=== PATIENT | female | born 2000 | race Caucasian/White ===

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

== ENCOUNTER 2021-01-16 17:50 | Emergency (ER) | payer BC, OTHER ==
[~2021-01-16] VITALS: Ht 162.6 cm; Wt 63.6 kg
[2021-01-16 18:41] VITALS: BP 133/75
--- NOTE | 2021-01-16 20:26 | NUR ---
PLEASE CALL [phone] WITH COVID RESULTS
--- NOTE | 2021-01-16 20:32 | NUR ---
CALLED PT WITH NEGATIVE COVOID RESULTS
== END 2021-01-16 20:16 | disposition home or self-care (01) ==
LOC: ER 17:51
DX: M79.10 Myalgia, unspecified site (principal); R50.9 Fever, unspecified; R06.02 Shortness of breath; Z20.822 Contact with and (suspected) exposure to COVID-19
CPT/HCPCS: 87635; 99283; C9803

== ENCOUNTER 2021-10-22 23:35 | Emergency (ER) | payer BC ==
[~2021-10-22] VITALS: Ht 162.6 cm; Wt 65.9 kg
[2021-10-23 00:08] VITALS: BP 142/91
== END 2021-10-23 00:54 | disposition home or self-care (01) ==
LOC: ER 23:35
DX: S09.90XA Unspecified injury of head, initial encounter (principal); R51.9 Headache, unspecified; V87.7XXA Person injured in collision between other specified motor vehicles (traffic), initial encounter; Y93.89 Activity, other specified; Y92.89 Other specified places as the place of occurrence of the external cause; Y99.8 Other external cause status
CPT/HCPCS: 99282

== ENCOUNTER 2022-08-04 20:09 | Emergency (ER) | payer BC ==
[~2022-08-04] VITALS: Ht 162.6 cm; Wt 57.4 kg
[2022-08-04 21:38] LABS: CLARITY,URINE CLEAR (Clear); COLOR,URINE YELLOW (Yellow); GLUCOSE, URINE NEGATIVE (Neg); KETONES,URINE NEGATIVE (Neg); LEUKOCYTE ESTERASE ,URINE SMALL (Neg); NITRITES, URINE NEGATIVE (Neg); OCCULT BLOOD,URINE NEGATIVE (Neg); PH,URINE 6.5 (4.8-8.0); PROTEIN,URINE NEGATIVE (Neg)
[2022-08-04 21:39] LABS: URINE HCG POSITIVE (NEG)
[2022-08-04 21:43] LABS: UA COLLECTION TYPE CLN CATCH MIDSTREAM
[2022-08-04 21:56] LABS: BACTERIA,URINE FEW /HPF (Neg); RBC,URINE 0-2 /HPF (0-2); SQUAMOUS EPITHELIAL CELL,UR FEW /LPF (FEW)
[2022-08-04 23:04] LABS: BASOPHILS # (AUTO) 0.1 X10'3 (0-0.2); HEMOGLOBIN 14.5 g/dl (12.0-16.0)
[2022-08-04 23:05] LABS: BASOPHILS % (AUTO) 0.7 % (0-1); EOSINOPHILS # (AUTO) 0.1 X10'3 (0-0.9); HEMATOCRIT 42.9 % (35.0-45.0); LYMPHOCYTES # (AUTO) 2.9 X10'3 (1.1-4.8); LYMPHOCYTES % (AUTO) 23.5 % (21-51); MEAN CORPUSCULAR HEMOGLOBIN 27.8 PG (27.0-31.0); MEAN CORPUSCULAR HGB CONC 33.9 g/dL (33.0-36.5); MEAN CORPUSCULAR VOLUME 82.2 FL (78-98); MEAN PLATELET VOLUME 7.9 FL (7.4-10.4); MONOCYTES # (AUTO) 0.9 X10'3 (0-0.9); MONOCYTES % (AUTO) 6.9 % (2-12); NEUTROPHILS # (AUTO) 8.5 X10'3 (1.8-7.7); NEUTROPHILS % (AUTO) 67.9 % (42-75); PLATELET COUNT 262 X10'3 (140-440); RED BLOOD COUNT 5.23 X10'6 (4.20-5.60); RED CELL DISTRIBUTION WIDTH 14.1 % (11.5-14.5); WHITE BLOOD COUNT 12.5 X10'3 (4.5-11.0)
[2022-08-04 23:53] VITALS: BP 115/66
[2022-08-04 23:57] LABS: ALANINE AMINOTRANSFERASE 9 U/L (12-78); ALBUMIN 4.2 G/DL (3.4-5.0); ALBUMIN/GLOBULIN RATIO 1.3 (1.1-1.5); ALKALINE PHOSPHATASE 50 IU/L (46-116); ANION GAP 10 (8-16); ASPARTATE AMINO TRANSFERASE 9 U/L (10-37); BILIRUBIN,TOTAL 0.5 MG/DL (0.1-1.0); BLOOD UREA NITROGEN 12 MG/DL (7-18); BUN/CREATININE RATIO 16.7 (6.6-38.0); CALCIUM 9.2 MG/DL (8.5-10.1); CHLORIDE 101 MMOL/L (99-107); CREATININE 0.72 MG/DL (0.40-0.90); GLUCOSE 98 MG/DL (70-104); POTASSIUM 3.7 MMOL/L (3.5-5.1); SODIUM 136 MMOL/L (135-145); TOTAL PROTEIN 7.4 G/DL (6.4-8.2); eGFR > 90 ML/MIN
[2022-08-05 00:25] LABS: BETA HCG,QUANTITATIVE 51364 mIU/ml
== END 2022-08-05 | disposition home or self-care (01) ==
LOC: ER 20:10
DX: O34.81 Maternal care for other abnormalities of pelvic organs, first trimester (principal); N83.202 Unspecified ovarian cyst, left side; O21.9 Vomiting of pregnancy, unspecified; F17.200 Nicotine dependence, unspecified, uncomplicated; Z3A.01 Less than 8 weeks gestation of pregnancy
CPT/HCPCS: 36415; 76801; 80053; 81001; 81025; 84702; 85025; 85610; 86885; 86900; 86901; 87088; 99284

== ENCOUNTER 2024-11-20 01:54 | Emergency (ER) | payer BC ==
[~2024-11-20] VITALS: Ht 165.1 cm; Wt 57.7 kg
[2024-11-20 02:41] LABS: URINE HCG NEGATIVE (NEG)
[2024-11-20 02:48] LABS: BILIRUBIN,URINE NEGATIVE (Neg); CLARITY,URINE CLEAR (Clear); COLOR,URINE YELLOW (Yellow); GLUCOSE, URINE NEGATIVE (Neg); KETONES,URINE NEGATIVE (Neg); LEUKOCYTE ESTERASE ,URINE MODERATE (Neg); NITRITES, URINE NEGATIVE (Neg); OCCULT BLOOD,URINE NEGATIVE (Neg); PROTEIN,URINE NEGATIVE (Neg); UA COLLECTION TYPE CLN CATCH MIDSTREAM; UROBILINOGEN,URINE 0.2 E.U/dL (0.2-1.0)
[2024-11-20 03:01] LABS: MUCUS STRANDS MODERATE /LPF (Neg); RBC,URINE 0-2 /HPF (0-2); SQUAMOUS EPITHELIAL CELL,UR MODERATE /LPF (FEW)
[2024-11-20 03:02] LABS: BACTERIA,URINE FEW /HPF (Neg)
--- NOTE | 2024-11-20 03:26 | Physician Documentation ---
History of Present Illness ~ Chief Complaint: Abdominal Pain Stated Complaint: LOWER ABDOMINAL PAIN Time Seen by MD: 03:19 Primary Medical Doctor: WANDA Source: patient Mode of Arrival: POV Exam Limitations: no limitations HPI Chief Complaint: Acute left pelvic pain Caveat: None Independent Historians: None History of Present Illness: Patient is a healthy 23-year-old woman who comes in complaining of severe 9/10 sharp stabbing left pelvic pain that comes and goes. This began 1 hour prior to arrival. Patient states that she has PCOS in his sexually active. Patient denies any vaginal discharge. Patient denies any fever. Patient has irregular periods in his not sure if she is . Patient denies any upper abdominal pain. Patient states that she also had left shoulder pain 30 minutes prior to arrival that has since resolved. Review of systems: All systems were reviewed and are negative except for what is indicated in the history of present illness. Past Medical History: PCOS Past Surgical History: None Social History: Occasional alcohol use, no tobacco use, no drug use Medications: Reviewed as documented Nursing Notes Allergies: Reviewed as documented in Nursing Notes Medication Reconciliation Allergies: Coded Allergies: No Known Allergies (Unverified , 11/20/24) Past Medical History Past Medical History: No Pertinent History Past Surgical History: no surgical history Alcohol Use: None Drug Use: none Lives In: Home Review of Systems All Other Systems at this time: Reviewed and Negative ROS Patient denies any other acute symptoms other than above. All other systems are negative Physical Exam Vital Signs: RN Vital Signs have been reviewed: Yes, Temperature: 98.2, Source: Oral, Heart Rate: 87, Respiratory Rate: 19, BP: 110/87, Pulse Oximetry: 100, Weight: 57.700 Oxygen Flow Rate: 0 Pulse Oximetry Reflects: adequate oxygenation Physical Exam General Appearance: No distress HEENT: Normal OP, moist oral mucosa, PERRL, EOMI Neck: supple, normal ROM, trachea midline Pulmonary: No respiratory distress, CTA, BS equal Cardiac: RRR, no murmur, rub or gallop, GI: nondistended, soft, nontender, normal bowel sounds, no guarding, no rebound , LEFT PELVIC TENDERNESS Extremities: normal ROM, no swelling, non-tender Skin: intact, dry, warm, no rashes Neuro: AAOx3, speech is clear, no focal motor weakness Psych: normal affect, good eye contact, no apparent hallucination, normal speech Progress Results/Orders Results/Orders Orders - DILLAN WINTERS MD Cult Urine + [place] [address] (11/20/24 03:02) Ultrasound Pelvis W/Orwo Dplx (11/20/24 03:22) Completed Orders - DILLAN WINTERS MD Hcg, Ur Ql (11/20/24 02:28) Ua W/Microscopic, Cult If Ind (11/20/24 02:26) Cbc/Diff (11/20/24 03:22) BMP (11/20/24 03:22) Ultrasound Pelvis W/Orwo Dplx (11/20/24 03:22) Vital Signs 11/20/24 11/20/24 11/20/24 11/20/24 01:56 02:45 02:48 04:37 Temp 98.2 Pulse 109 87 92 Resp 15 18 19 17 B/P (MAP) 153/99 110/87 (95) 142/83 (102) Pulse Ox 100 100 100 O2 Flow Rate 0 Laboratory Tests Test 11/20/24 02:26 11/20/24 04:40 Urine Specimen Description Cln catch midstream Urine Color Yellow Urine Clarity Clear Urine pH 7.0 Urine Specific [place] 1.015 Urine Protein Negative Urine Glucose (UA) Negative Urine Ketones Negative Urine Occult Blood Negative Urine Nitrite Negative Urine Bilirubin Negative Urine Urobilinogen 0.2 Urine Leukocyte Esterase Moderate H Urine RBC 0-2 Urine WBC 5-10 H Urine Squamous Epithelial Cells Moderate Urine Bacteria Few Urine Mucus Moderate Urine Culture Indicated Indicated Volume Urine Centrifuged 10 ml Urine HCG, Qualitative Negative Urine Comment White Blood Count 8.8 Red Blood Count 5.36 Hemoglobin 14.8 Hematocrit 43.1 Mean Corpuscular Volume 80.4 Mean Corpuscular Hemoglobin 27.6 Mean Corpuscular Hemoglobin Concent 34.4 Red Cell Distribution Width 13.2 Platelet Count 245 Mean Platelet Volume 8.3 Neutrophils (%) (Auto) 57.0 Lymphocytes (%) (Auto) 34.2 Monocytes (%) (Auto) 6.3 Eosinophils (%) (Auto) 1.9 Basophils (%) (Auto) 0.6 Neutrophils # (Auto) 5.0 Lymphocytes # (Auto) 3.0 Monocytes # (Auto) 0.6 Eosinophils # (Auto) 0.2 Basophils # (Auto) 0.1 CBC Comment Sodium Level 142 Potassium Level 3.7 Chloride Level 106 Carbon Dioxide Level 26.6 Anion Gap 9 Blood Urea Nitrogen 15 Creatinine 1.07 H Estimated GFR/1.73 m2 64 BUN/Creatinine Ratio 14.0 Glucose Level 93 Calcium Level 8.9 Albumin 4.5 Chemistry Comments Microbiology Date/Time Source Procedure Growth Status 11/20/24 03:02 Urine Clean Catch Midstream Urine Culture - Preliminary Culture received. Resulted Medical Decision Making Findings Differential diagnosis includes but is not limited to: ECTOPIC , OVARIAN TORSION, RUPTURED OVARIAN CYSTS, TUBO-OVARIAN ABSCESS Pelvic ultrasound, indication: Acute left pelvic pain Impression: Laboratory data independent interpretation: CBC: BMP: Urinalysis: Emergency department course/medical decision-making: Consultation/communications: Departure Time of Disposition: 05:39 Disposition: 01 HOME / SELF CARE / HOMELESS Impression: Primary Impression: ACUTE PELVIC PAIN UNKNOWN CAUSE Condition: Improved Discharge Instructions: Pelvic Pain, Female, [id number] Additional Instructions: CAUSE FOR YOUR LEFT LOWER PELVIC PAIN WAS NOT FOUND. RETURN TO THE EMERGENCY DEPARTMENT IF SYMPTOMS WORSEN. TAKE ADVIL OR MOTRIN FOR PAIN. Referrals: NO PRIMARY CARE PROVIDER (PCP) Education Educated: Patient Educated regarding: diagnosis, treatment Signature Scribe Signature: No scribe Attestation: No scribe DILLAN WINTERS MD Nov 20, 2024 03:26
[2024-11-20 04:37] VITALS: RESP 17
[2024-11-20 04:50] LABS: BASOPHILS # (AUTO) 0.1 X10'3 (0-0.2); BASOPHILS % (AUTO) 0.6 % (0-1); EOSINOPHILS # (AUTO) 0.2 X10'3 (0-0.9); EOSINOPHILS % (AUTO) 1.9 % (0-6); HEMATOCRIT 43.1 % (35.0-45.0); HEMOGLOBIN 14.8 g/dl (12.0-16.0); LYMPHOCYTES % (AUTO) 34.2 % (21-51); MEAN CORPUSCULAR HEMOGLOBIN 27.6 PG (27.0-31.0); MEAN CORPUSCULAR HGB CONC 34.4 g/dL (33.0-36.5); MEAN CORPUSCULAR VOLUME 80.4 FL (78-98); MEAN PLATELET VOLUME 8.3 FL (7.4-10.4); MONOCYTES # (AUTO) 0.6 X10'3 (0-0.9); MONOCYTES % (AUTO) 6.3 % (2-12); PLATELET COUNT 245 X10'3 (140-440); RED BLOOD COUNT 5.36 X10'6 (4.20-5.60); RED CELL DISTRIBUTION WIDTH 13.2 % (11.5-14.5); WHITE BLOOD COUNT 8.8 X10'3 (4.5-11.0)
[2024-11-20 05:02] LABS: ALBUMIN 4.5 G/DL (3.4-5.0); ANION GAP 9 (8-16); BLOOD UREA NITROGEN 15 MG/DL (7-18); CALCIUM 8.9 MG/DL (8.5-10.1); CHLORIDE 106 MMOL/L (99-107); CREATININE 1.07 MG/DL (0.40-0.90); GLUCOSE 93 MG/DL (70-104); POTASSIUM 3.7 MMOL/L (3.5-5.1); SODIUM 142 MMOL/L (135-145); TOTAL CARBON DIOXIDE 26.6 MMOL/L (24-32); eCRCL 74 ML/MIN; eGFR 64 ML/MIN
--- NOTE | 2024-11-20 05:20 | RADIOLOGY REPORT ---
EXAM: US Pelvis Transabdominal and Transvaginal, Complete CLINICAL INDICATION: Pain TECHNIQUE: Real-time complete transabdominal and transvaginal pelvic ultrasound with image documenta tion. Transvaginal imaging was used for better evaluation of the endometrium and adnexa. COMPARISON: No relevant prior studies available. FINDINGS: UTERUS/CERVIX: Uterus 6.9, 2.5.3. No myometrial mass. The endometrial stripe measures 0.45 cm in t hickness. RIGHT OVARY: Unremarkable. Normal blood flow. The right ovary measures 2.6 x 2.1 x 20 cm. LEFT OVARY: Unremarkable. Normal blood flow. The left ovary measures 2.0 x 2.4 x 2.3 cm. FREE FLUID: No free fluid. BLADDER: Unremarkable as visualized. Wall is normal thickness for degree of distention. IMPRESSION: No acute findings in the pelvis.
[2024-11-20 05:44] VITALS: BP 100/78; PULSE 88; TEMP 98.2; O2SAT 100
== END 2024-11-20 05:45 | disposition home or self-care (01) ==
LOC: ER 01:55
DX: R10.2 Pelvic and perineal pain (principal)
CPT/HCPCS: 36415; 76830; 76856; 80048; 81001; 81025; 85025; 87088; 93976; 99284

== ENCOUNTER 2025-02-18 22:03 | Emergency (ER) | payer BC ==
[~2025-02-18] VITALS: Ht 165.1 cm; Wt 61.2 kg
--- NOTE | 2025-02-18 22:16 | ELECTROCARDIOGRAPH REPORT ---
[facility] Test Date: 2025-02-18 Test Time: 22:10:39 Pat Name: ROSELIA PRECIADO Department: EMERGENCY ROOM Room: Gender: F Brand Manager: : 2000 Requested By: ROBERT LEE Order Number: [id number] Reading MD: Dr. Cal Rodríguez Measurements Intervals [place] Rate: 105 P: 40 CO: 122 QRS: 60 QRSD: 67 T: 20 QT: 315 QTc: 417 Interpretive Statements Sinus tachycardia Borderline T wave abnormalities Electronically Signed On 02-20-2025 19:18:[address] Cal Rodríguez Please click the below link to view image of tracing.
[2025-02-18 22:22] LABS: MEAN PLATELET VOLUME 7.9 FL (7.4-10.4); RED CELL DISTRIBUTION WIDTH 13.7 % (11.5-14.5)
[2025-02-18 22:41] LABS: CREATININE 0.96 MG/DL (0.40-0.90); PRO BRAIN NATRIURETIC PEPTIDE 54 PG/ML (0-125); TOTAL CARBON DIOXIDE 25.3 MMOL/L (24-32); eCRCL 81 ML/MIN; eGFR 71 ML/MIN
--- NOTE | 2025-02-18 22:44 | Physician Documentation ---
History of Present Illness ~ Chief Complaint: Chest Wall Pain Stated Complaint: SOB Time Seen by MD: 22:30 Primary Medical Doctor: WANDA Mode of Arrival: POV HPI Patient presents to the emergency room for evaluation of epigastric burning chest pain radiating into her back in arm. She states she has had heartburn before but this is different. Subjective shortness of breath which has since improved. She states she felt like she just could not get any air. Onset of symptoms this evening. Patient has history of heartburn that has had nothing for her symptoms. Medication Reconciliation Allergies: Coded Allergies: No Known Allergies (Unverified , 11/20/24) Past Medical History Past Medical History: No Pertinent History Past Surgical History: no surgical history Alcohol Use: None Drug Use: none Lives In: Home Review of Systems ROS All review of systems negative except as per HPI Physical Exam Vital Signs: Temperature: 98.0, Heart Rate: 96, Respiratory Rate: 18, BP: 166/68, Pulse Oximetry: 97, Weight: 61.200 Oxygen Flow Rate: 0 Physical Exam General: Patient is awake, alert, oriented x4 in no acute distress. Anxious Head: Normocephalic and atraumatic. Eyes: Conjunctival normal. EOMI. PERRL. ENT: Mucous membranes moist. Neck: Supple, trachea is midline. Chest: Clear to auscultation bilaterally without rales, rhonchi, or wheezes. There is no accessory muscle use or retractions. Cardiac: Tachycardic and regular without murmurs, gallops, or rubs. Abd: Soft, nondistended, nontender, with normoactive bowel sounds. No guarding, rebound, or rigidity. Progress Results/Orders Results/Orders Orders - ROBERT BLUE MD Chest,Single View (02/18/25 22:15) Monitor (02/18/25 22:15) Saline Lock (02/18/25 22:15) Oxygen (02/18/25 22:15) Hs Troponin I W Calculations (02/19/25 00:15) Hs Troponin I W Calculations (02/19/25 01:15) Cult Urine + [place] [address] (02/18/25 23:25) Completed Orders - ROBERT BLUE MD Chest,Single View (02/18/25 22:15) Cbc/Diff (02/18/25 22:15) BMP (02/18/25 22:15) PBNP (02/18/25 22:15) Electrocardiogram (02/18/25 22:15) Hs Troponin I W Calculations (02/18/25 22:15) Hcg, Ur Ql (02/18/25 22:15) Lipase (02/18/25 22:15) Famotidine Tablet (Pepcid Tablet) (02/18/25 22:45) Mag & Alum Hydrox/Simeth Susp (Maalox Or (02/18/25 22:45) Ua W/Microscopic, Cult If Ind (02/18/25 22:20) Medications Received in ER Medications (Trade) Dose Ordered Sig/Taj Route PRN Reason Start Time Stop Time Status Last Admin Dose Admin (Pepcid tablet) 40 mg ONCE ONCE PO 02/18/25 22:45 02/18/25 22:46 DC 02/18/25 23:00 40 MG (Maalox oral suspension) 30 ml ONCE ONCE PO 02/18/25 22:45 02/18/25 22:46 DC 02/18/25 22:59 30 ML Vital Signs 02/18/25 02/18/25 22:16 22:38 Temp 98.0 Pulse 96 Resp 16 18 B/P (MAP) 166/68 Pulse Ox 97 O2 Flow Rate 0 Laboratory Tests Test 02/18/25 22:11 02/18/25 22:20 White Blood Count 9.6 Red Blood Count 5.61 H Hemoglobin 14.9 Hematocrit 44.6 Mean Corpuscular Volume 79.5 Mean Corpuscular Hemoglobin 26.5 L Mean Corpuscular Hemoglobin Concent 33.3 Red Cell Distribution Width 13.7 Platelet Count 303 Mean Platelet Volume 7.9 Neutrophils (%) (Auto) 60.5 Lymphocytes (%) (Auto) 32.0 Monocytes (%) (Auto) 5.7 Eosinophils (%) (Auto) 1.0 Basophils (%) (Auto) 0.8 Neutrophils # (Auto) 5.8 Lymphocytes # (Auto) 3.1 Monocytes # (Auto) 0.5 Eosinophils # (Auto) 0.1 Basophils # (Auto) 0.1 CBC Comment Sodium Level 144 Potassium Level 3.8 Chloride Level 107 Carbon Dioxide Level 25.3 Anion Gap 12 Blood Urea Nitrogen 14 Creatinine 0.96 H Estimated GFR/1.73 m2 71 BUN/Creatinine Ratio 14.6 Glucose Level 101 Calcium Level 9.1 Troponin I High Sensitivity < 4 L Troponin I High Sens Percent Delta Troponin I Hi Sens Absolute Change Pro-B-Type Natriuretic Peptide 54 Albumin 4.1 Lipase 45 Chemistry Comments Urine Specimen Description Cln catch midstream Urine Color Straw Urine Clarity Slightly cloudy Urine pH 7.0 Urine Specific [place] 1.015 Urine Protein Negative Urine Glucose (UA) Negative Urine Ketones Negative Urine Occult Blood Negative Urine Nitrite Negative Urine Bilirubin Negative Urine Urobilinogen 0.2 Urine Leukocyte Esterase Moderate H Urine RBC 0-2 Urine WBC 5-10 H Urine Squamous Epithelial Cells Few Urine Bacteria Few Urine Culture Indicated Indicated Volume Urine Centrifuged 10 ml Urine HCG, Qualitative Negative Urine Comment EKG/XRAY/CT/US/VASC/MRI EKG : Additional Comment EKG interpreted by myself shows time of 2210, rate 105, sinus tachycardia, normal axis, no ST changes Chest X-Ray : Additional Comments One view chest x-ray interpreted by myself shows no effusions, no infiltrates and normal cardiac silhouette. Medical Decision Making Findings Patient presented to the emergency room for evaluation of chest pain. Differentials include but are not limited to ACS, reflux, pulmonary embolism, pneumothorax therefore emergent labs and imaging indicated. Labs and imaging reassuring. The patient with a heart score of 0 Departure Disposition: 01 HOME / SELF CARE / HOMELESS Impression: Primary Impression: Chest pain Condition: Improved Discharge Instructions: Nonspecific Chest Pain, Adult Referrals: NO PRIMARY CARE PROVIDER (PCP) Prescriptions Famotidine (Pepcid) 20 Mg Tablet 1 TAB PO Q12H for 30 Days, #60 TAB 0 Refills Prov: ROBERT BLUE MD 02/18/25 Education Educated: Patient Educated regarding: diagnosis, treatment, need for follow up Signature Scribe Signature: No scribe Attestation: The note accurately reflects work and decisions made by me.Robert Blue MD 02/18/25 23:34 ROBERT BLUE MD Feb 18, 2025 22:44
--- NOTE | 2025-02-18 22:47 | RADIOLOGY REPORT ---
CLINICAL HISTORY: CP TECHNIQUE: Single view of the chest was obtained. COMPARISON: None FINDINGS: The heart size and pulmonary vasculature are normal. The lungs are clear. IMPRESSION: NO ACUTE CARDIOPULMONARY PROCESS.
[2025-02-18] MEDS: mag hydrox/Alum hydrox/simeth 30ml oral suspension PO ONE (22:59)
[2025-02-18 23:16] LABS: URINE HCG NEGATIVE (NEG)
[2025-02-18 23:17] LABS: LEUKOCYTE ESTERASE ,URINE MODERATE (Neg); NITRITES, URINE NEGATIVE (Neg); OCCULT BLOOD,URINE NEGATIVE (Neg)
[2025-02-18 23:21] LABS: UA COLLECTION TYPE CLN CATCH MIDSTREAM
[2025-02-18 23:25] LABS: SQUAMOUS EPITHELIAL CELL,UR FEW /LPF (FEW)
[2025-02-18] MEDS ORDERED: FAMO-129 PO (23:33)
[2025-02-18 23:50] VITALS: BP 129/92; PULSE 93; RESP 15; TEMP 98; O2SAT 100
== END 2025-02-18 23:52 | disposition home or self-care (01) ==
LOC: ER 22:03
DX: R07.9 Chest pain, unspecified (principal)
CPT/HCPCS: 36415; 71045; 80048; 81001; 81025; 83690; 83880; 84484; 85025; 87088; 93005; 99285

== ENCOUNTER 2025-03-30 04:04 | Emergency (ER) | payer BC ==
[~2025-03-30] VITALS: Ht 165.1 cm; Wt 61.4 kg
[~2025-03-30 04:04] MED LIST: FAMO-129 PO
[2025-03-30] MEDS ORDERED: EPIN0.3P3 IM (04:19)
--- NOTE | 2025-03-30 04:19 | Physician Documentation ---
History of Present Illness General Stated Complaint: HARD TIME SWALLOWING Time Seen by MD: 04:06 Primary Medical Doctor: SUBLET History of Present Illness Initial Comments This is a 24-year-old female who presents to the emergency department via EMS with a concern for allergic reaction. She states that she was eating chips and salsa, the same while as she has been many times before, they were not too spicy for her, in the about 30 minutes afterwards she developed circumoral numbness and sensation that her throat is tight. No wheezing, no nausea or vomiting or diarrhea, no abdominal pain, no loss of consciousness, no chest pain. No new rashes. No particular palliating or aggravating factors for her symptoms. She attempted to drink water but they did not improve her symptoms. Denies any concerns for tobacco, alcohol or illicit substances use Medication Reconciliation Allergies: Coded Allergies: No Known Allergies (Unverified , 11/20/24) Scheduled Epinephrine (Epipen 2-Lico), 1 SYR IM ONCE Famotidine (Pepcid), 1 TAB PO Q12H Past Medical History Past Medical History: No Pertinent History Past Surgical History: no surgical history Smoking: Non-Smoker Alcohol Use: None Drug Use: none Lives In: Home Review of Systems ROS 10 point review of systems was performed and unless noted above in HPI is negative for acute process/complaint. Physical Exam Physical Exam Physical Exam GENERAL: Awake, alert, oriented, GCS 15, no apparent distress, non-toxic appearing, answers questions, follows commands appropriately. [facility] Atraumatic, normocephalic, pupils equal, extraocular muscles intact, sclerae anicteric, mucus membranes moist, oropharynx is clear, no stridor. Posterior oropharynx is patent, uvula midline, there was no evidence of swelling. Trachea midline. NECK: supple, full active range of motion, trachea midline, no thyromegaly, no lymphadenopathy, no JVD. CARDIOVASCULAR: regular rate/rhythm, no murmurs/gallops/rubs, Pulses are 2+ in all extremities and symmetric. Capillary refill less than 2 seconds. PULMONARY: Nonlabored, good air movement ,no respiratory distress, speaking in full sentences, clear to auscultation bilaterally, no wheezing, no ronchi, no ra les, no accessory muscle use. GASTROINTESTINAL: Soft, non-tender, non-distended, normal active bowel sounds, no organomegaly, no pulsatile masses, no CVA tenderness. NEUROLOGIC: Lucid with normal mental status. Normal facial symmetry. Moves all extremities symmetrically and with purpose. No truncal ataxia. Speech is fluid without evidence of dysarthria or aphasia, no focal deficits appreciated. MUSCULOSKELETAL: There is full range of motion of all extremities. There is no joint pain or joint swelling or joint erythema. There is no muscle pain or tenderness or swelling. EXTREMITIES: warm, well-perfused, no cyanosis, no clubbing, no edema, no acute deformities. Skin: warm, dry, no rashes or lesions, no jaundice, no petechiae orpurpura. No ecchymosis. PSYCHIATRIC: Normal affect, normal insight, normal concentration. Focused exam: [] Progress Results/Orders Results/Orders Completed Orders - SHEN KIM DO Diphenhydramine Inj (Benadryl Inj.) (03/30/25 04:10) Dexamethasone Inj (Decadron 10mg/Ml Inj) (03/30/25 04:07) Famotidine/Pf Iv Inj (Pepcid Iv Inj) (03/30/25 04:10) Diphenhydramine Capsule (Benadryl Capsul (03/30/25 04:35) Dexamethasone Tablet (Decadron Tablet) (03/30/25 04:35) Famotidine Tablet (Pepcid Tablet) (03/30/25 04:35) Medications Received in ER Medications (Trade) Dose Ordered Sig/Taj Route PRN Reason Start Time Stop Time Status Last Admin Dose Admin (Benadryl capsule) 50 mg ONCE ONCE PO 03/30/25 04:35 03/30/25 04:36 DC 03/30/25 04:42 50 MG (Decadron tablet) 12 mg ONCE ONCE PO 03/30/25 04:35 03/30/25 04:36 DC 03/30/25 04:41 12 MG (Pepcid tablet) 20 mg ONCE ONCE PO 03/30/25 04:35 03/30/25 04:36 DC 03/30/25 04:41 20 MG Vital Signs 03/30/25 03/30/25 04:17 05:06 Temp 97.9 97.9 Pulse 89 83 Resp 20 16 B/P (MAP) 116/76 117/75 (89) Pulse Ox 99 98 Medical Decision Making Additional information obtaine: other (EMS) Findings Facility Status: ED Holds, RME process The plan was discussed with the patient, who demonstrates clear understanding of the plan and is in agreement with the plan unless otherwise noted in the chart. All questions have been answered, all concerns were addressed unless otherwise documented. I was available throughout their ED stay for frequent reassessment and questions. Differential Diagnoses (considered and possible or likely): [Or food intolerance, allergic reaction, chemical reaction to the capsaicin in the salsa, less likely anaphylaxis, less likely anaphylactic shock. No clinical evidence of angioedema.] ??Differential Diagnoses (considered and unlikely, not requiring evaluation currently): [See above] MDM Data Please see [facility] for the following: Independent Historians and external Records Review. Historian: [Patient] Independent Historians: ?[EMS] Medication Management: [Reviewed medication list] Social History and determinants: [Reviewed] Please see the body of the note for the following: Any independent interpretations of ECG, imaging studies. All vitals signs/haemodynamics, ordered tests were independently reviewed and interpreted by myself. Nursing triage complaint and vitals reviewed, additional nursing notes were reviewed as available and I agree unless otherwise noted or documented in contradiction in the chart Vital Signs: Independently reviewed Labs: Independently interpreted Imaging: Independently interpreted Old Medical Records: Independently reviewed, see HPI for relevant summary and information Pulse Oximetry: [99%] interpreted as [normal on room air] by me [Lamp Stack Developer: [Regular Rate, Regular rhythm, no ectopy, NSR] reviewed and interpreted by me] Additionally notably showing: [Hemodynamically stable , no evidence of airway compromise] Tests considered but not ordered include: [Hematologic workup and imaging has been considered but does not appear to be necessary given clinical nature of diagnosis] Social Determinants of Health Impact: Patient was evaluated in [facility], or [facility] [place] to [facility] for [facility] care due to below par ratio of patient to medical providers. [] Comorbid Conditions Impacting Present Evaluation and Care/Treatment: [None] Management Discussions with other Healthcare Providers: [None] Treatment and Disposition Medication Management (Given or considered): [Allergy cocktail including Benadryl, Decadron, Pepcid. Epinephrine has been considerably there was no evidence of 2nd system involvement, no evidence of anaphylaxis.]. See EMR for details Consideration for Hospitalization/Escalation/Deescalation of Care: Admission for observation has been considered, [however the patient is able to tolerate p.o., their symptoms are controlled, they are able to rely on oral medications, and their chief complaint/diagnosis can be managed on outpatient basis.] ?ED Course:?[Date: Mar 30, 2025 Time: 04:35 the patient refused IV medications. We will switch to p.o.. ] Date: Mar 30, 2025 Time: 05:43 patient is feeling better. ?Shared decision making:?[Patient is hemodynamically stable for discharge home with follow with their primary care provider. [ ] Specific and cautious return precautions provided and discussed with full understanding. Any incidental findings were also discussed and follow up recommendations given. [] All questions answered. Patient/family were able to verbalize back return precau tions. Patient/family agree to plan. Copies of imaging and laboratory studies were provided.] Code status:?FULL Please see the full Electronic Medical Record for full details of nursing documentation, medications list, other records of complete past medical history and conditions, vital signs, laboratory studies, and any radiologic study interpretations by radiologists. Portions of this note were completed using [employer] dictation software and as a result there may exist minor errors in spelling. I have reviewed elements of past family and social history and agree as included in note. Differential Diagnosis See the body of main note Departure Disposition: 01 HOME / SELF CARE / HOMELESS Impression: Primary Impression: Globus sensation Additional Impression: Food allergy Condition: Improved Discharge Instructions: Food Allergy Referrals: NO PRIMARY CARE PROVIDER (PCP) Prescriptions Epinephrine (Epipen 2-Lico) 0.3 Mg/0.3 Ml Auto.injct 1 SYR IM ONCE for 1 Day, #1 PKT 0 Refills Prov: SHEN KIM DO 03/30/25 Education Educated: Patient Educated regarding: diagnosis, treatment, prognosis, need for follow up Signature Scribe Signature: No scribe Attestation: Date: Mar 30, 2025 Time: 04:20 This note accurately reflects clinical decisions, work performed by myself, Shen Kim, SHEN KELLEY DO Mar 30, 2025 04:19
[2025-03-30] MEDS: dexamethasone sod phosphate 10mg/ml inj IV STA (05:06)
[2025-03-30] MEDS: famotidine/PF 10 mg/ml inj IV ONE (05:06)
[2025-03-30 06:02] VITALS: BP 109/71; PULSE 69; RESP 16; TEMP 97.9; O2SAT 97
== END 2025-03-30 06:05 | disposition home or self-care (01) ==
LOC: ER 04:05
DX: R09.A2 Foreign body sensation, throat (principal); T78.19XA Other adverse food reactions, not elsewhere classified, initial encounter; Z79.899 Other long term (current) drug therapy; X58.XXXA Exposure to other specified factors, initial encounter
CPT/HCPCS: 99284; Q0163

== ENCOUNTER 2025-05-14 08:12 | Emergency (ER) | payer BC ==
[~2025-05-14] VITALS: Ht 165.1 cm; Wt 57.9 kg
[~2025-05-14 08:12] MED LIST changes: +EPIN0.3P3 IM
[2025-05-14 08:54] LABS: MEAN PLATELET VOLUME 7.8 FL (7.4-10.4); RED CELL DISTRIBUTION WIDTH 13.9 % (11.5-14.5)
[2025-05-14 08:58] LABS: URINE HCG NEGATIVE (NEG)
[2025-05-14 09:01] LABS: LEUKOCYTE ESTERASE ,URINE SMALL (Neg); NITRITES, URINE NEGATIVE (Neg); OCCULT BLOOD,URINE NEGATIVE (Neg); UA COLLECTION TYPE CLN CATCH MIDSTREAM
[2025-05-14 09:05] LABS: CREATININE 0.83 MG/DL (0.40-0.90); TOTAL CARBON DIOXIDE 27.3 MMOL/L (24-32); eCRCL 94 ML/MIN; eGFR 84 ML/MIN
[2025-05-14 09:08] LABS: AMORPHOUS URATES 1+; MUCUS STRANDS FEW /LPF (Neg); RENAL CELLS, URINE FEW /HPF; SQUAMOUS EPITHELIAL CELL,UR MANY /LPF (FEW)
[2025-05-14 09:14] VITALS: PULSE 74
--- NOTE | 2025-05-14 09:41 | Physician Documentation ---
History of Present Illness Chief Complaint: Abdominal Pain Stated Complaint: ABD PAIN Time Seen by MD: 09:07 Primary Medical Doctor: WANDA JUNG 24-year-old female with history of PCOS, acid reflux presented to the ED with complaints of abdominal pain since the past two days. Abdominal pain mainly in the epigastric radiating to the umbilicus, associated with "pulsating" " tapping" sensation. Abdominal pain is associated with lightheadedness/dizziness. Radiates to the back at times. Currently her pain is 5/10. Denies significant chest pains, diaphoresis, fevers/chills, nasal congestion, expectoration, palpitations, or weight loss/weight gain. She has regular bowel movements, last bowel movement was yesterday no history of constipation. Denies symptoms of UTI and dysuria, urgency/ frequency. Last menstrual cycle was two months ago. Monogamous and sexually active, does not think that she is . Does not take any medications. Timing/Duration: days Quality/Severity: mild Pain Scale: 5 Location: epigastric Radiation: back Activities on Onset: spontaneous History Of: other (PCOS, acid reflux) Modifiy Factors: Improves with: nothing Associated Symptoms: other (Lightheadedness/dizziness) Medication Reconciliation Allergies: Coded Allergies: No Known Allergies (Unverified , 05/14/25) Scheduled Epinephrine (Epipen 2-Lico), 1 SYR IM ONCE Famotidine (Pepcid), 1 TAB PO Q12H Past Medical History Past Medical History: No Pertinent History Past Surgical History: no surgical history Alcohol Use: None Drug Use: none Lives In: Home Review of Systems ROS Reviewed in full. All negative except for pertinent positive HPI. Physical Exam Vital Signs: Temperature: 97.2, Source: Temporal, Heart Rate: 74, Respiratory Rate: 18, BP: 122/76, Pulse Oximetry: 100, Weight: 57.900 Oxygen Flow Rate: 0 Physical Exam General: Awake and Alert, no acute distress. HEENT: Conjunctiva pink, Sclera clear, Mucus Membranes moist. Neck: Supple without masses and tenderness. Resp: Unlabored. Equal breath sounds bilaterally. Heart: Regular rhythm, normal S1 and S2, no rub, murmur or gallop. Abdomen: Epigastric pain and tenderness to deep palpation in the umbilical region. Abdomen soft, diminished bowel sounds. No guarding or rigidity. Extremities: Normal ROM, no swelling, nontender. No cyanosis,clubbing or edema. Musculoskeletal: Normal posture and gait. No joint swelling, deformity or tenderness, full range of motion and strength 5 x 5 in all extremities. RN INTERNATIONAL: No gross motor or sensory abnormalities. Skin: Warm and Dry. Progress Results/Orders Results/Orders Vital Signs 05/14/25 05/14/25 05/14/25 08:25 08:36 09:14 Temp 97.2 97.2 Pulse 89 100 74 Resp 14 14 18 B/P (MAP) 136/96 123/86 (98) 122/76 (91) Pulse Ox 100 100 100 O2 Flow Rate 0 0 0 Laboratory Tests Test 05/14/25 08:32 05/14/25 08:40 Urine Specimen Description Cln catch midstream Urine Color Yellow Urine Clarity Cloudy Urine pH 6.0 Urine Specific [place] >=1.030 Urine Protein Trace Urine Glucose (UA) Negative Urine Ketones Trace H Urine Occult Blood Negative Urine Nitrite Negative Urine Bilirubin Small Urine Urobilinogen 0.2 Urine Leukocyte Esterase Small H Urine RBC 0-2 Urine WBC 5-10 H Urine Squamous Epithelial Cells Many Urine Transitional Epithelial Cells Moderate Urine Renal Cells Few Urine Amorphous Urates 1+ Urine Bacteria 1+ Urine Mucus Few Urine Culture Indicated Rejected for culture Volume Urine Centrifuged 7 ml Urine HCG, Qualitative Negative Urine Comment Low volume White Blood Count 8.8 Red Blood Count 5.33 Hemoglobin 14.7 Hematocrit 42.7 Mean Corpuscular Volume 80.1 Mean Corpuscular Hemoglobin 27.5 Mean Corpuscular Hemoglobin Concent 34.4 Red Cell Distribution Width 13.9 Platelet Count 257 Mean Platelet Volume 7.8 Neutrophils (%) (Auto) 52.0 Lymphocytes (%) (Auto) 38.3 Monocytes (%) (Auto) 6.6 Eosinophils (%) (Auto) 2.2 Basophils (%) (Auto) 0.9 Neutrophils # (Auto) 4.6 Lymphocytes # (Auto) 3.4 Monocytes # (Auto) 0.6 Eosinophils # (Auto) 0.2 Basophils # (Auto) 0.1 CBC Comment Sodium Level 141 Potassium Level 3.6 Chloride Level 104 Carbon Dioxide Level 27.3 Anion Gap 10 Blood Urea Nitrogen 14 Creatinine 0.83 Estimated GFR/1.73 m2 84 BUN/Creatinine Ratio 16.9 Glucose Level 96 Calcium Level 9.0 Total Bilirubin 0.7 Aspartate Amino Transf (AST/SGOT) 17 Alanine Aminotransferase (ALT/SGPT) 15 Alkaline Phosphatase 54 Total Protein 8.1 Albumin 4.4 Globulin 3.7 Albumin/Globulin Ratio 1.2 Lipase 36 Chemistry Comments EKG/XRAY/CT/US/VASC/MRI CT : Impression I personally interpreted the CT scan, and this shows no acute process in the abdomen, no appendicitis Medical Decision Making Additional information obtaine: other Findings Abdominal pain and tenderness to deep palpation in the umbilical and lower abdominal quadrant Differential Dx:Considerations: Cholangitis, Esophagitis, Gastritis/PUD, Hepatitis, Inflammatory BD, PID Addendum I supervised the resident physician during the evaluation and treatment of this patient. I also independently evaluated her and reviewed her workup. Here in the ED, the patient does have nonspecific central abdominal pain. She has a benign abdominal exam. Her workup was unremarkable including unremarkable laboratory testing. After shared decision-making conversation we did proceed with a CT scan, which also shows no acute or dangerous process. She was reassured and discharged with ongoing symptomatic treatment. Giovany Meng MD Departure Disposition: HOME / SELF CARE / HOMELESS Impression: Primary Impression: Abdominal pain Condition: Improved Discharge Instructions: Abdominal Pain, Women, Gastritis, Adult, Urinary Tract Infection, Adult, Abdominal Pain (Nonspecific), Dehydration, Adult Additional Instructions: Your labs are unremarkable, urine is clear. CT of the abdomen and pelvis is completely normal no changes noted within the solid organs or aorta. Recommended to use [id number] antacids to see if it could help with your epigastric pain as you do has a history of GERD Referrals: NO PRIMARY CARE PROVIDER (PCP) Education Educated: Patient Educated regarding: diagnosis, treatment, prognosis ACF Form Admit Criteria Met or Not Met: NO Signature Scribe Signature: N/A Attestation: MD BEE Sanders ELIZABETH, DAQUAN May 14, 2025 09:41 GIOVANY MENG MD May 14, 2025 19:04
[2025-05-14] MEDS: LIDOcaine 2% Viscous 15ml cup MM ONE (10:02)
[2025-05-14] MEDS: mag hydrox/Alum hydrox/simeth 30ml oral suspension PO STA (10:02)
[2025-05-14] MEDS: diatr meglu/diatrizoate 30ml oral sol.-(3 dose) bottle PO SCH (10:30)
[2025-05-14] MEDS ORDERED: iohexol 300mg/ml 100ml inj. ONE (11:10)
--- NOTE | 2025-05-14 11:56 | RADIOLOGY REPORT ---
CLINICAL HISTORY: abd pain, Look for aortic anomalies/abnormality PT. REFUSEID IV CONTRAST TECHNIQUE: CT of the abdomen and pelvis was performed with IV contrast. This exam was performed according to our departmental dose optimization program. Up-to-date CT equipment and radiation dose reduction techniques are utilized as appropriate. CTDI 9.3 DLP 469 COMPARISON: None FINDINGS: Abdomen/Pelvis: The spleen, pancreas, adrenal glands, kidneys, gallbladder, liver, bladder, and uterus are grossly unremarkable. The abdominal aorta is normal in course and caliber. There are no significant atherosclerotic calcifications. There is no free intraperitoneal air or fluid. There is no enlarged abdominal or pelvic lymph node. There is no bowel wall thickening or dilatation. The probable appendix is normal. Regardless, there is no focal inflammatory process in its expected Other: The imaged lower thorax is unremarkable. No acute osseous abnormality is evident. IMPRESSION: No acute abnormality in the abdomen or pelvis.
[2025-05-14 12:12] VITALS: BP 118/75; RESP 20; TEMP 97.2; O2SAT 99
== END 2025-05-14 12:22 | disposition home or self-care (01) ==
LOC: ER 08:12
DX: R10.13 Epigastric pain (principal); R42 Dizziness and giddiness
CPT/HCPCS: 36415; 74176; 80053; 81001; 81025; 83690; 85025; 99284; Q9967